=== PATIENT | female | born 1960 | race Two or more races ===

== ENCOUNTER 2018-11-30 11:03 | Emergency (ER) | payer BC ==
[~2018-11-30] VITALS: Ht 162.6 cm; Wt 90.7 kg
[2018-11-30 11:11] VITALS: BP 154/77
== END 2018-11-30 13:18 | disposition home or self-care (01) ==
LOC: ER 11:03
DX: R06.02 Shortness of breath (principal); H60.93 Unspecified otitis externa, bilateral; J02.9 Acute pharyngitis, unspecified; J45.909 Unspecified asthma, uncomplicated
CPT/HCPCS: 71046; 93005